=== PATIENT | male | born 2000 | race Caucasian/White ===

== ENCOUNTER → 2024-02-04 | Emergency (ER) | payer BC ==
[~2024-02-04] MED LIST: ACETAMINOPHEN 325 MG/10 ML UDC ONE; KETOROLAC TROMETHAMINE 30 MG/ML VIAL ONE; MAGNESIUM/ALUMINUM/SIMETHICONE 30 ML UDC ONE; ONDANSETRON HCL 4 MG ORAL DISINTEGRATING TAB ONE
== END | disposition home or self-care (01) ==
LOC: FSED 00:59
DX: R05.9 Cough, unspecified (principal); J00 Acute nasopharyngitis [common cold]; F90.9 Attention-deficit hyperactivity disorder, unspecified type
CPT/HCPCS: 99284; J1885; Q0162